=== PATIENT | female | born 1975 | race Two or more races ===

== ENCOUNTER 2019-11-04 09:21 | Day surgery (SDC) | payer MEDICAID ==
[~2019-11-04 09:21] MED LIST: Lactated Ringers 1,000 ML IV SCH
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
[2019-11-04] MEDS ORDERED: Propofol 200 MG/20 ML SDV ONE (11:06)
[2019-11-04] MEDS ORDERED: Lidocaine 2% 5 ML SDV ONE (11:06)
--- NOTE | 2019-11-04 12:03 | PCM.OPNOTE ---
- General Post-Op/Procedure Note Date of Surgery/Procedure: 11/04/19 Operative Procedure(s): egd w bx. colonoscopy Findings: see [id number] Pre Op Diagnosis: change in bowel habits and gerd Post-Op Diagnosis: Same Anesthesia Technique: Moderate Sedation Primary Surgeon: Dalton Rodriguez Pathology: sent Complications: None Condition: Good Free Text/Narrative:: Intake & Output 11/03/19 11/04/19 11/04/19 22:59 06:59 14:59 Intake Total 700 Balance 700
--- NOTE | 2019-11-04 12:42 | OR ---
SURGEON: Dalton Rodriguez MD DATE OF PROCEDURE: 11/04/2019 PREOPERATIVE DIAGNOSES: Change in bowel habit and recurrent gastroesophageal reflux disease. POSTOPERATIVE DIAGNOSES: Change in bowel habit and recurrent gastroesophageal reflux disease. PROCEDURES PERFORMED: Esophagogastroduodenoscopy with biopsy and colonoscopy. DESCRIPTION OF PROCEDURE: EGD: The patient was taken to the endoscopy room, and with the FUEL ATTENDANT, Diprivan was administered. A well-lubricated EGD scope was gently inserted through the oropharynx, down the esophagus, passing through the gastroesophageal junction, into the stomach. The mucosa was examined upon the passage. Any etiology will be noted. Once in the stomach, we continued to advance to the distal antrum, passed through the pylorus into the second portion of the duodenum. Again, the mucosa was examined for any abnormality and etiology. The scope was then retrieved back to the stomach and then retroflexed to look at the fundus of the stomach. If a biopsy was indicated, we will biopsy the antrum, body, and gastroesophageal junction. The air will be sucked out while the scope is retrieved to reduce the patient's discomfort. The patient tolerated the procedure well. There were no intraoperative complications. Dr. Rodriguez was present through the whole procedure. Prior to surgery, a time-out had been called, the patient identified, procedure identified and antibiotic administered. The patient was taken to the endoscopy room. A time out was called, patient identified, and procedure identified. Diprivan was then administrated. Patient went from awake to sleep, hearing doctor talking or door closing is normal. Perineum inspection and digital examination were then performed. A well- lubricated colonoscope was gently inserted through the rectum, advanced past the rectosigmoid junction, the descending colon, splenic flexure, transverse colon, hepatic flexure, ascending colon, arrived to the cecum. Cecum was identified as dictated in the finding. Then the scope was carefully withdrawn while attention was paid to the mucosal surface for any abnormality. Air will be sucked out during the scope withdrawal. At the rectum, retroflexed to examine any rectal diseases, fistula or hemorrhoids. Patient tolerated procedure well. There were no intraoperative complications, and Dr. Rodriguez was present throughout the whole procedure. FINDINGS: EGD findings: 1. The patient is easily sedated with FUEL ATTENDANT and Diprivan, the patient is soundly snoring. 2. The patient's oropharynx and proximal esophagus are free of disease, stricture, or inflammation. Distal esophagus at GE junction at 40 shows moderate salmon-colored change, suggests moderate acid reflux. Stomach, can only see a very small stomach pouch, about 30 mL, from gastric bypass surgery. The whole stomach pouch does not seem to have any ulcer, bleeding, inflammation. Also looked into a little bit past the gastrojejunostomy connection and failed to find any abnormality. Did one biopsy and sucked out the gas while scope pulling out. During the whole study of the stomach pouch, there is no blood, ulcer, bile, or food particle. Colonoscopy findings: 1. The patient is easily sedated with FUEL ATTENDANT and Diprivan, the patient is soundly snoring. 2. The patient's bowel prep is left to be desirable, a lot of green thing, opaque, and compromised the study and this is a compromised study because of bowel prep. It is not a bad bowel prep, but it has a lot of green opaque liquid and required tremendous amount irrigation. Colon rather straightforward. Cecum indicated by ileocecal fold, one-to-one indentation, and appendiceal orifice. Light emittance is not observed. ScopeGuide is pointing south. Mucosa examined upon scope pulling out with constant irrigation. The patient does not have diverticulosis, polyp, mass, growth, inflammation, stricture, ulceration, AV malformation, bleeding, none of those. The patient has moderate internal hemorrhoids, no external hemorrhoids. The patient would benefit from repeat colonoscopy in 10 years from now or if clinically indicated otherwise. JEFFREY / DELMI /[id number]
--- NOTE | 2019-11-04 13:29 | PCM.POSTAN ---
POST ANESTHESIA ASSESSMENT - MENTAL STATUS Mental Status: Alert, Oriented - VITAL SIGNS Vital Signs: Last Vital Signs Temp 97.2 F 11/04/19 12:04 Pulse 57 L 11/04/19 12:04 Resp 16 11/04/19 12:04 BP 105/70 11/04/19 12:04 Pulse Ox 97 11/04/19 12:04 - RESPIRATORY Respiratory Status: Respiratory Rate WNL, Airway Patent, O2 Saturation Stable - CARDIOVASCULAR CV Status: Pulse Rate WNL, Blood Pressure Stable - GASTROINTESTINAL GI Status: No Symptoms - POST OP HYDRATION Hydration Status: Adequate & Stable
--- NOTE | 2019-11-04 13:30 | PCM48HPAN ---
Post Anesthesia Note - EVALUATION WITHIN 48HRS OF ANESTHETIC Vital Signs in Normal Range: Yes Patient Participated in Evaluation: Yes Respiratory Function Stable: Yes Airway Patent: Yes Cardiovascular Function Stable: Yes Hydration Status Stable: Yes Pain Control Satisfactory: Yes Nausea and Vomiting Control Satisfactory: Yes Mental Status Recovered: Yes Vital Signs: Last Vital Signs Temp 97.2 F 11/04/19 12:04 Pulse 57 L 11/04/19 12:04 Resp 16 11/04/19 12:04 BP 105/70 11/04/19 12:04 Pulse Ox 97 11/04/19 12:04
== END 2019-11-04 12:26 | disposition home or self-care (01) ==
LOC: MW.SDS 09:21
PROVIDERS: ATTEND Surgery
DX: R19.4 Change in bowel habit (principal); K21.9 Gastro-esophageal reflux disease without esophagitis; K64.8 Other hemorrhoids; Z90.49 Acquired absence of other specified parts of digestive tract; Z98.84 Bariatric surgery status
CPT/HCPCS: 43239; 45378; 81025; 88305; 88312; J2001; J2704; J7120

== ENCOUNTER 2022-01-14 05:12 | Emergency (ER) | payer MEDICAID ==
[2022-01-14] MEDS ORDERED: oxyCODONE 5 MG Tab PO ONE (06:20)
== END 2022-01-14 06:43 | disposition home or self-care (01) ==
LOC: MW.ED 05:12
DX: S82.001A Unspecified fracture of right patella, initial encounter for closed fracture (principal); E66.9 Obesity, unspecified; Z68.28 Body mass index [BMI] 28.0-28.9, adult; Z90.49 Acquired absence of other specified parts of digestive tract; Z79.899 Other long term (current) drug therapy; X58.XXXA Exposure to other specified factors, initial encounter
CPT/HCPCS: 73562; 99284; A9270; 99283

== ENCOUNTER 2022-08-11 21:33 | Emergency (ER) | payer OTHER, MEDICAID ==
[2022-08-11] MEDS ORDERED: Ibuprofen 600 MG Tab PO ONE (21:45)
[2022-08-11] MEDS ORDERED: Cyclobenzaprine 10 MG Tab PO ONE (21:45)
[2022-08-11] MEDS ORDERED: Acetaminophen/oxyCODONE 325-5 MG Tab PO ONE (23:00)
== END 2022-08-11 23:15 | disposition home or self-care (01) ==
LOC: MW.ED 21:33
DX: M54.2 Cervicalgia (principal); E66.9 Obesity, unspecified; Z68.29 Body mass index [BMI] 29.0-29.9, adult; V49.10XA Passenger injured in collision with unspecified motor vehicles in nontraffic accident, initial encounter; Y92.410 Unspecified street and highway as the place of occurrence of the external cause
CPT/HCPCS: 71045; 72125; 99284; A9270

== ENCOUNTER 2023-03-27 09:02 | Day surgery (SDC) | payer MEDICAID ==
[~2023-03-27 09:02] MED LIST changes: -Lactated Ringers 1,000 ML IV SCH; +ceFAZolin 2 GM in Sodium Chloride 0.9% 50 ML IV ONE
[2023-03-27] MEDS ORDERED: droPERidol 5 MG/2 ML SDV IVPUSH PRN (09:03)
[2023-03-27] MEDS ORDERED: Ondansetron 4 MG/2 ML SDV IVPUSH PRN (09:03)
[2023-03-27] MEDS ORDERED: Naloxone 0.4 MG/ML SDV IVPUSH PRN (09:03)
[2023-03-27] MEDS ORDERED: Morphine 2 MG/ML SYRINGE IVPUSH PRN (09:03)
[2023-03-27] MEDS ORDERED: fentaNYL 50 MCG/ML SDV IVPUSH PRN (09:03)
[2023-03-27] MEDS ORDERED: Metoclopramide 10 MG/2 ML SDV IVPUSH PRN (09:03)
[2023-03-27] MEDS ORDERED: Albuterol 0.083% 2.5 MG/3 ML Neb Soln NEB PRN (09:03)
[2023-03-27] MEDS: Lactated Ringers 1,000 ML IV SCH (09:36)
[2023-03-27] MEDS: Scopolamine 1.5 MG Transdermal Patch TOP ONE (09:36)
[2023-03-27] MEDS ORDERED: Bupivacaine 0.5% 30 ML SDV ONE (10:16)
[2023-03-27] MEDS ORDERED: Propofol 200 MG/20 ML SDV ONE (10:31)
[2023-03-27] MEDS ORDERED: Lidocaine 2% 5 ML SDV ONE (10:31)
[2023-03-27] MEDS ORDERED: Ketorolac 30 MG/ML SDV ONE (10:31)
[2023-03-27] MEDS ORDERED: Ondansetron 4 MG/2 ML SDV ONE (10:31)
[2023-03-27] MEDS ORDERED: ceFAZolin 2 GM Vial ONE (11:06)
[2023-03-27] MEDS ORDERED: Bupivacaine 25%/EPINEPHrine/PF 30 ML ONE (11:20)
[2023-03-27] MEDS: HYDROmorphone 1 MG/ML Syringe IVPUSH PRN (11:48)
== END 2023-03-27 12:55 | disposition home or self-care (01) ==
LOC: MW.SDS 09:02
PROVIDERS: ATTEND Orthopaedic Surgery
DX: T84.84XA Pain due to internal orthopedic prosthetic devices, implants and grafts, initial encounter (principal); M54.9 Dorsalgia, unspecified; G89.29 Other chronic pain; K21.9 Gastro-esophageal reflux disease without esophagitis; F41.9 Anxiety disorder, unspecified; F43.10 Post-traumatic stress disorder, unspecified; F32.A Depression, unspecified; G47.00 Insomnia, unspecified; Z98.890 Other specified postprocedural states; Z79.899 Other long term (current) drug therapy
CPT/HCPCS: 20680; 76000; A9270; J0690; J1170; J1885; J2405; J2704; J7120; 01400; J3490

== ENCOUNTER 2023-04-09 18:09 | Emergency (ER) | payer MEDICAID | END 2023-04-09 20:03 | disposition home or self-care (01) | LOC: MW.ED 18:09 | DX: M79.604 Pain in right leg (principal); M79.605 Pain in left leg | CPT/HCPCS: 99283 ==

== ENCOUNTER 2023-06-22 11:51 | Emergency (ER) | payer MEDICAID ==
[2023-06-22] MEDS ORDERED: Ketorolac 30 MG/ML SDV IVPUSH ONE (12:10)
[2023-06-22 12:16] LABS: BASOPHILS PERCENT AUTO 0.5 % (0.0-1.5); EOSINOPHILS ABSOLUTE AUTO 0.1 K/uL (0.0-0.7); EOSINOPHILS PERCENT AUTO 0.8 % (0.0-7.0); HEMATOCRIT 42.7 % (36.0-46.0); HEMOGLOBIN 14.2 g/dL (12.0-16.0); LYMPHOCYTES ABSOLUTE AUTO 1.8 K/uL (0.6-2.4); LYMPHOCYTES PERCENT AUTO 30.1 % (16.0-40.0); MEAN CORPUSCULAR HEMOGLOBIN 27.4 pg (27.0-32.0); MEAN CORPUSCULAR HGB CONC 33.3 g/dL (31.0-37.0); MEAN CORPUSCULAR VOLUME 82.4 fL (80.0-98.0); MONOCYTES ABSOLUTE AUTO 0.2 K/uL (0.0-0.8); MONOCYTES PERCENT AUTO 3.7 % (0.0-15.0); NEUTROPHILS ABSOLUTE AUTO 3.9 K/uL (1.4-5.7); NEUTROPHILS PERCENT AUTO 64.9 % (48.0-80.0); NRBC ABSOLUTE 0 K/uL; PLATELET COUNT,PLT 254 K/uL (150-400); RED BLOOD CELL COUNT 5.18 M/uL (4.30-5.90); WHITE BLOOD CELL COUNT,WBC 6.01 K/uL (4.0-11.0)
[2023-06-22 12:41] LABS: A/G RATIO 0.8 (0.9-1.6); ALBUMIN 4.1 g/dL (3.4-5.0); BILIRUBIN TOTAL 0.5 mg/dL (0.2-1.0); CALCIUM 8.6 mg/dL (8.5-10.1); CARBON DIOXIDE,CO2 26.9 mmol/L (21.0-32.0); CREATININE 0.7 mg/dL (0.6-1.0); EST CRCL DRUG DOSING (CG) 89.4 mL/min; PROTEIN TOTAL,TP 9.2 g/dL (6.4-8.2)
== END 2023-06-22 16:56 | disposition home or self-care (01) ==
LOC: MW.ED 11:51
DX: S22.41XA Multiple fractures of ribs, right side, initial encounter for closed fracture (principal); X58.XXXA Exposure to other specified factors, initial encounter
CPT/HCPCS: 36415; 71250; 80053; 84484; 84702; 84703; 85025; 85379; 93005; 96374; 96375; 99285; J1885; J3360; 93010; 99284